=== PATIENT | female | born 1945 | race Caucasian/White ===

== ENCOUNTER 2022-12-21 17:48 | Outpatient (REF) | payer MEDICARE, SELFPAY ==
[2022-12-21 20:22] LABS: HCT 41.7 % (36.0-46.0); HGB 13.7 g/dL (11.2-15.7); MCH 29.5 pg (27.0-33.0); MCHC 32.9 % (32.0-36.0); MCV 90 fL (80-95); MPV 9.3 fL (8.0-11.0); Platelet Count 219 10^3/uL (130-400); RBC 4.65 10^6/uL (3.93-5.22); RDW 13.2 % (11.7-14.6); RDW-SD 43.6 fL; WBC 7.85 10^3/uL (4.4-10.8)
[2022-12-21 20:51] LABS: ALT 23 U/L (14-59); AST 24 U/L (15-37); Alkaline Phosphatase 107 U/L (46-116); Anion Gap 7.8 mmol/L (3-11); BUN 16 mg/dL (7-18); Bilirubin, Total 0.3 mg/dL (0.2-1.0); CO2 27.2 mmol/L (21.0-32.0); CREATININE 1.1 mg/dL (0.55-1.02); Calcium 8.9 mg/dL (8.5-10.1); Chloride 106 mmol/L (98-107); Estimated GFR 51.75 (mL/min/1.73m2); Glucose 97 mg/dL (74-106); Potassium 4.3 mmol/L (3.5-5.1); Sodium 141 mmol/L (136-145); Total Protein 7.2 g/dL (6.4-8.2)
[2022-12-21 21:06] LABS: Calculated LDL 103 mg/dL (<100); Cholesterol 206 mg/dL (<200); HDL Cholesterol 35 mg/dL (40-60); Triglyceride 344 mg/dL (<150)
== END 2022-12-21 17:49 | disposition home or self-care (01) ==
LOC: NCHCN 17:48
PROVIDERS: PCP Family Medicine; Visit Provider Family Medicine
DX: E78.1 Pure hyperglyceridemia (principal); R53.83 Other fatigue
CPT/HCPCS: 80053; 80061; 85027

== ENCOUNTER 2024-10-24 17:12 | Outpatient (REF) | payer MEDICARE, OTHER, SELFPAY ==
[2024-10-24 22:07] LABS: Anion Gap 4.6 mmol/L (3-11); BUN 23 mg/dL (7-18); CO2 30.4 mmol/L (21.0-32.0); CREATININE 1.1 mg/dL (0.55-1.02); Calcium 9.6 mg/dL (8.5-10.1); Chloride 105 mmol/L (98-107); Estimated GFR 51.11 (mL/min/1.73m2); Glucose 108 mg/dL (74-106); Potassium 4.5 mmol/L (3.5-5.1); Sodium 140 mmol/L (136-145)
== END 2024-10-24 17:13 | disposition home or self-care (01) ==
LOC: NCHCN 17:12
PROVIDERS: PCP Family Medicine; Visit Provider Internal Medicine
DX: R79.89 Other specified abnormal findings of blood chemistry (principal)
CPT/HCPCS: 80048

== ENCOUNTER 2024-11-13 20:27 | Outpatient (REF) | payer MEDICARE, SELFPAY ==
[2024-11-13 20:56] LABS: COMMENT (LAB VIEW ONLY) 51.82 mg/dL; Microalb ug/mg Crea 11.2 ug/mg Cr
[2024-11-13 21:15] LABS: Bacteria Negative HPF (Negative); Crystals Rare Amorphous HPF (Negative); Epithelial Cells Rare HPF (Negative); RBC 0-2 HPF (0-2); WBC 0-2 HPF (0-5)
[2024-11-13 21:16] LABS: C & S Indicated? No; Casts Negative LPF (Negative); Mucus Trace (Negative)
== END 2024-11-13 20:28 | disposition home or self-care (01) ==
LOC: NCHCN 20:27
PROVIDERS: PCP Family Medicine; Visit Provider Internal Medicine
DX: N18.31 Chronic kidney disease, stage 3a (principal)
CPT/HCPCS: 81015; 82043; 82570

== ENCOUNTER → 2024-12-04 13:30 | Outpatient (BNVA) | payer MEDICARE, SELFPAY | PROVIDERS: PCP Family Medicine; Referring Provider Family Medicine; Visit Provider Psychiatry & Neurology Neurology | DX: G20.C Parkinsonism, unspecified (principal); R41.3 Other amnesia; K59.00 Constipation, unspecified; J44.9 Chronic obstructive pulmonary disease, unspecified | CPT/HCPCS: 99205 ==

== ENCOUNTER → 2025-02-18 14:41 | Outpatient (BNVA) | payer MEDICARE, SELFPAY | PROVIDERS: Referring Provider Family Medicine; Visit Provider Psychiatry & Neurology Neurology | DX: G20.C Parkinsonism, unspecified (principal); R41.3 Other amnesia; K59.00 Constipation, unspecified; G25.81 Restless legs syndrome; J44.9 Chronic obstructive pulmonary disease, unspecified | CPT/HCPCS: 99215 ==

== ENCOUNTER 2025-02-24 14:05 | Outpatient (CLI) | payer MEDICARE, SELFPAY ==
--- NOTE | 2025-02-24 06:00 | DI.RAD_ITS ---
Exam(s) XR PAIN CLINIC CERVICAL SP 2V EXAM: XR PAIN CLINIC CERVICAL SP 2V CLINICAL HISTORY: Dx: Cervical Spondylosis. TECHNIQUE: Fluoroscopy was provided for the referring physician for guidance with performing pain clinic injection procedure. COMPARISON: No exams were available for comparison FINDINGS: Please see procedure note for details. Fluoro time: 27.4 seconds RADIATION DOSE DELIVERED: linda Norwood=3.14 mGy
[2025-02-24 14:16] VITALS: BP 110/58; PULSE 68; RESP 20; TEMP 36.6; O2SAT 98
--- NOTE | 2025-02-24 14:39 | PDOC.PAIN_ITS ---
Date of service: 02/24/25 Time of Service: 15:19 Pain Managment Procedure Note Procedure Note Procedure Note: Cervical Facet Joint Injection of Steroid ? Location: Right Facet Joints ? Levels: C5-6, C6-7 ? Pre-procedure Diagnosis: M47.812 Spondylosis without myelopathy or radiculopathy, cervical region ? Post-procedure Diagnosis:? The same as above ? Sedation:? None ? Estimated blood loss:? less than 2 cc ? Surgeon: Juan Rutledge MD COMMENT: PRE PROCEDURE PAIN SCORE: 12/04. Decision was made to proceed with intra-articular facet injections for the possibility of not having to do medial branch blocks and radiofrequency ablation if patient get long lasting relief (> 3 months). ? Procedure Detail:? The procedure and potential risks were explained to the patient and informed written consent was obtained. The patient was escorted to the procedure room and placed in the left lateral decubitus position. Pillows were utilized for proper positioning and comfort.? Time out was performed in the procedure room with nursing staff confirming the patient's identity, procedure to be performed, allergies, and any blood thinning or anti- platelet medications.? Sterile technique was maintained throughout the procedur e.? The patient's cervical area was prepped with chlorhexidine and draped in a sterile fashion. A lateral fluoroscopic view was obtained, with visualization of the facet joint.? A 25gauge, Quincke needle was gently advanced through the facet capsule.? Needle placement was confirmed with fluoroscopy in AP,? and lateral views by injecting 0.25cc of contrast.? 10 mg of depomedrol and 0.25ml of 0.5% bupivacaine was injected into the capsule at C5-6,C6-7 right.? The patient tolerated the procedure well and was discharged with instructions. Permanent images saved and recorded. PAIN: PRE-PROCEDURE 12/04 POST-PROCEDURE 08/04 Plan:? Follow up prn COMMENT: Before the patient left patient had greater than 60% pain relief.? Will use this as both diagnostic and potentially therapeutic.? With short-term relief from the level that it was not long-lasting then we will proceed with radiofrequency ablation Coding Conscious Sedation used for procedure: No CPT Codes: CMBB (includes Fluoro) Cervical/Thoracic, 2nd lvl - 30679 ([id number] ~G) CMBB (includes Fluoro) Cervical/Thoracic, single lvl - 07111 ([id number] ~G) Additional Codes: Date of Service () Diagnoses: M47.812 Spondylosis without myelopathy or radiculopathy, cervical region
[2025-02-24 15:00] VITALS: PULSE 65; O2SAT 97
[2025-02-24 15:10] VITALS: PULSE 67; O2SAT 98
[2025-02-24] MEDS: Omnipaque 240 MG/ML 50 ML BTL IJ (15:22)
[2025-02-24] MEDS: Bupivacaine 0.5% Pres-Free 10 ML VIAL IJ (15:22)
[2025-02-24] MEDS: methylPREDNISolone ACETATE 80 MG/ML VIAL IJ (15:22)
[2025-02-24] MEDS: Nerve Block Tray 1 EACH MC (15:23)
== END 2025-02-24 14:06 | disposition home or self-care (01) ==
LOC: PC 14:05
PROVIDERS: PCP Internal Medicine; Visit Provider Anesthesiology Pain Medicine
DX: M54.2 Cervicalgia (principal); M47.812 Spondylosis without myelopathy or radiculopathy, cervical region
CPT/HCPCS: 64490; 64491; 72040; J0665; J1010; Q9967

== ENCOUNTER → 2025-03-16 12:02 | Outpatient (BNVA) | payer MEDICARE, SELFPAY | PROVIDERS: PCP Internal Medicine; Referring Provider Family Medicine; Visit Provider Nurse Practitioner Adult Health | DX: R41.3 Other amnesia (principal) | CPT/HCPCS: 99213 ==

== ENCOUNTER → 2025-04-06 14:46 | Outpatient (BNVA) | payer MEDICARE, SELFPAY | PROVIDERS: PCP Internal Medicine; Referring Provider Family Medicine; Visit Provider Psychiatry & Neurology Neurology | DX: G20.C Parkinsonism, unspecified (principal); R41.3 Other amnesia; K59.00 Constipation, unspecified; G25.81 Restless legs syndrome; J44.9 Chronic obstructive pulmonary disease, unspecified | CPT/HCPCS: 99215 ==

== ENCOUNTER 2025-04-27 21:29 | Outpatient (REF) | payer MEDICARE, OTHER, SELFPAY ==
[2025-04-27 22:03] LABS: HCT 37.6 % (36.0-46.0); HGB 12.1 g/dL (11.2-15.7); MCH 29.4 pg (27.0-33.0); MCHC 32.2 % (32.0-36.0); MCV 92 fL (80-95); MPV 9.3 fL (8.0-11.0); Platelet Count 246 10^3/uL (130-400); RBC 4.11 10^6/uL (3.93-5.22); RDW 12.1 % (11.7-14.6); RDW-SD 41.0 fL; WBC 8.66 10^3/uL (4.4-10.8)
[2025-04-27 22:22] LABS: Ferritin 44 ng/mL (7-271)
[2025-04-27 22:24] LABS: ALT < 7 U/L (10-49); AST 14 U/L (<34); Albumin 4.3 g/dL (3.2-5.0); Alkaline Phosphatase 105 U/L (46-116); Anion Gap 7 mmol/L (3-11); BUN 23 mg/dL (9-23); Bilirubin, Total 0.30 mg/dL (0.2-1.2); CO2 27.0 mmol/L (20.0-31.0); Calcium 9.4 mg/dL (8.3-10.6); Chloride 107 mmol/L (98-107); Glucose 96 mg/dL (74-106); Potassium 4.4 mmol/L (3.5-5.1); Sodium 141 mmol/L (136-145); Total Protein 7.1 g/dL (5.7-8.2)
== END 2025-04-27 21:30 | disposition home or self-care (01) ==
LOC: NCHCN 21:29
PROVIDERS: PCP Internal Medicine; Visit Provider Internal Medicine
DX: N18.31 Chronic kidney disease, stage 3a (principal); G25.81 Restless legs syndrome
CPT/HCPCS: 80053; 85027; 82728